=== PATIENT | female | born 1935 | race Caucasian/White ===

== ENCOUNTER 2019-01-02 21:15 | Emergency (ER) | payer MEDICARE ==
[2019-01-02 21:50] LABS: #Basophils 0.1 thou/uL (0.0-0.2); #Eosinphils 0.1 thou/uL (0.0-0.7); #Lymphocytes 1.1 thou/uL (1.20-3.40); #Monocytes 1.1 thou/uL (0.11-0.59); #Neutrophils 12.7 thou/uL (1.40-6.50); %Basophils 0.4 % (0.0-1.0); %Eosinophils 0.5 % (0.0-10.0); %Lymphocytes 7.3 % (21.0-51.0); %Monocytes 7.5 % (0.0-10.0); %Neutrophils 84.3 % (42.0-75.0); Hemoglobin 12.3 g/dL (12.0-16.0); Mean Corpuscular HGB CONC 32.5 g/dL (32.0-36.0); Mean Corpuscular Hemoglobin 32.9 pg (27.0-31.0); Mean Platelet Volume 7.4 fL (7.4-10.4); Platelet Count 183 thou/uL (130-400); RBC Distribution Width 11.4 % (11.5-14.5); Red Blood Cell (RBC) Count 3.73 mill/uL (4.20-5.40)
[2019-01-02] MEDS ORDERED: Ondansetron PF 4 MG/2 ML Vial ONE (22:01)
[2019-01-02 22:10] LABS: ALT (SGPT) 11 U/L (8-55); AST (SGOT) 19 U/L (5-34); Albumin 3.9 g/dL (3.4-4.8); Alkaline Phosphatase 73 U/L (40-150); Anion Gap 14 mmol/L (10-20); BUN (Urea Nitrogen) 16 mg/dL (9.8-20.1); Bilirubin, Total 0.9 mg/dL (0.2-1.2); Calc. Creatinine Clearance 0 mL/min (70-130); Calcium 9.9 mg/dL (7.8-10.44); Carbon Dioxide 27 mmol/L (23-31); Chloride 102 mmol/L (98-107); Estimated GFR-MDRD 52; Globulin 2.4 g/dL (2.4-3.5); Glucose 117 mg/dL (83-110); Potassium 4.1 mmol/L (3.5-5.1); Protein, Total 6.3 g/dL (6.0-8.3); Sodium 139 mmol/L (136-145)
[2019-01-02 22:48] LABS: Bilirubin Negative (Negative); Blood, Urine Negative (Negative); Clarity CLEAR (Clear); Glucose, Urine (Dipstick) Negative (Negative); Leukocyte Negative (Negative); Nitrite Negative (Negative); Protein, Urine (Dipstick) Negative (Neg-Trace); Specific Gravity, Urine 1.024 (1.002-1.036); pH, Urine 5.5 (5.0-9.0)
--- NOTE | 2019-01-02 23:15 | CT ---
CT ABDOMEN AND PELVIS WITH IV CONTRAST 01/02/19 HISTORY: Abdominal pain and fever. FINDINGS: Tiny nonspecific subpleural nodules are present at the right lung base. Large parapelvic cysts invol ves the mid portion of the left kidney. No hydronephrosis. Moderate calcification throughout the mario rial structures. No evidence of bowel obstruction. Urinary bladder is incompletely distended. Diverticula arise from the colon. there is circumferential wall thickening of the sigmoid colon with stranding in the adjacent fat and small amount of adjacent free fluid. No free air. IMPRESSION: Sigmoid diverticulitis with small amount of adjacent free fluid. POS: [facility]
[2019-01-02] MEDS ORDERED: Ciprofloxacin 500 MG TAB ONE (23:39)
[2019-01-02] MEDS ORDERED: metroNIDAZOLE 250 MG TAB ONE (23:39)
== END 2019-01-02 23:55 | disposition home or self-care (01) ==
LOC: ERS 21:15
DX: K57.32 Diverticulitis of large intestine without perforation or abscess without bleeding (principal); E03.9 Hypothyroidism, unspecified; E78.5 Hyperlipidemia, unspecified; I10 Essential (primary) hypertension; F32.9 Major depressive disorder, single episode, unspecified; Z79.82 Long term (current) use of aspirin; Z79.899 Other long term (current) drug therapy
CPT/HCPCS: 36415; 74177; 80053; 81003; 83605; 85025; 96361; 96374; J2405

== ENCOUNTER 2021-07-12 11:31 | Outpatient (CLI) | payer MEDICARE | END 2021-07-12 11:32 | disposition home or self-care (01) | LOC: BICMAMMO 11:31 | PROVIDERS: ATTEND Obstetrics & Gynecology | DX: Z12.31 Encounter for screening mammogram for malignant neoplasm of breast (principal) | CPT/HCPCS: 77063; 77067 ==

== ENCOUNTER 2021-09-20 08:54 | Outpatient (CLI) | payer MEDICARE | END 2021-09-20 08:55 | disposition home or self-care (01) | LOC: CT 08:54 | PROVIDERS: ATTEND Family Medicine | DX: R10.32 Left lower quadrant pain (principal); K86.89 Other specified diseases of pancreas; K76.9 Liver disease, unspecified; K83.8 Other specified diseases of biliary tract; K57.30 Diverticulosis of large intestine without perforation or abscess without bleeding; R91.1 Solitary pulmonary nodule | CPT/HCPCS: 74177; 82565 ==

== ENCOUNTER 2021-11-17 08:45 | Outpatient (CLI) | payer MEDICARE | END 2021-11-17 08:46 | disposition home or self-care (01) | LOC: PET 08:45 | PROVIDERS: ATTEND Internal Medicine Hematology & Oncology | DX: C25.9 Malignant neoplasm of pancreas, unspecified (principal) | CPT/HCPCS: 78815; A9552 ==

== ENCOUNTER 2022-02-14 08:48 | Outpatient (CLI) | payer MEDICARE | END 2022-02-14 08:49 | disposition home or self-care (01) | LOC: BICCT 08:48 | PROVIDERS: ATTEND Internal Medicine Hematology & Oncology | DX: C25.2 Malignant neoplasm of tail of pancreas (principal); C25.1 Malignant neoplasm of body of pancreas; K86.89 Other specified diseases of pancreas; R59.0 Localized enlarged lymph nodes | CPT/HCPCS: 71260; 74178 ==

== ENCOUNTER 2022-03-09 09:43 | Day surgery (SDC) | payer MEDICARE ==
[2022-03-09] MEDS ORDERED: Acetaminophen 500 MG TAB ONE (10:28)
[2022-03-09] MEDS ORDERED: diphenhydrAMINE 25 MG CAP ONE (10:28)
[2022-03-09 13:17] VITALS: BP 122/58; TEMP 97.7
== END 2022-03-09 13:17 | disposition home or self-care (01) ==
LOC: ONC/OP 09:43
PROVIDERS: ATTEND Nurse Practitioner Family
PROC: 30233N1 Transfusion of Nonautologous Red Blood Cells into Peripheral Vein, Percutaneous Approach (ICD-10-PCS; principal; 2022-03-09)
DX: D64.9 Anemia, unspecified (principal); D69.6 Thrombocytopenia, unspecified
CPT/HCPCS: 36430; 86850; 86870; 86900; 86901; 86905; 86922; J1642; P9016

== ENCOUNTER 2022-07-21 09:09 | Outpatient (CLI) | payer MEDICARE ==
[2022-07-21] MEDS ORDERED: Iopamidol-370 76% 500 ML 1 ML ONE (10:49)
== END 2022-07-21 09:10 | disposition home or self-care (01) ==
LOC: BICCT 09:09
PROVIDERS: ATTEND Internal Medicine Hematology & Oncology
DX: C25.1 Malignant neoplasm of body of pancreas (principal); K31.89 Other diseases of stomach and duodenum; K57.30 Diverticulosis of large intestine without perforation or abscess without bleeding; N28.89 Other specified disorders of kidney and ureter; R91.8 Other nonspecific abnormal finding of lung field; Z90.49 Acquired absence of other specified parts of digestive tract
CPT/HCPCS: 71260; 74177; Q9967